=== PATIENT | female | born 1960 | race Hispanic/Latino ===

== ENCOUNTER 2016-12-06 02:06 | Emergency (ER) | payer SELFPAY ==
[~2016-12-06] VITALS: Ht 152.4 cm; Wt 87.2 kg
[~2016-12-06 02:06] MED LIST: ACETTAB3 OR; ADVIL200 MG OR; DARVOCET N-100100 - OR; FIORICET PO; INDOMETHACIN50 MG PO; LISINOPRIL10 MG PO; MAXALT-MLT10 MG OR; MEDDOSEPAK PO; MICARDIS HC1 OR; MICARDIS HCT OR; MICARDIS40 MG; MICARDIS40 MG OR; NAPROXEN SOD550 MG OR; NO; NO CURRENT MEDS; REGLAN10 MG OR; REGLAN5 MG OR; TRAMADOL HCL50 MG OR; ULTRAM50 MG OR
[2016-12-06 02:47] VITALS: BP 140/92
[2016-12-06 02:52] LABS: HEMATOCRIT 35.6 % (37.0-47.0); HEMOGLOBIN 11.9 g/dl (12.0-16.0); IMMATURE GRANULOCYTES 0.2 % (0.0-1.0); MEAN CELL VOLUME 89.4 fL CALC (80.0-100.0); MEAN CORPUSCULAR HGB 29.9 pG CALC (26.0-32.0); MEAN CORPUSCULAR HGB CONC 33.4 g/L CALC (32.0-36.0); NEUT# 5.77 thou/uL (2.00-7.15); RED BLOOD COUNT 3.98 mill/uL (4.20-5.60)
[2016-12-06 03:02] LABS: ALBUMIN 4.1 g/dL (3.2-5.0); ALKALINE PHOSPHATASE 71 u/l (38-126); ANION GAP 15 (6-22 (CALC)); BILIRUBIN, TOTAL 0.5 mg/dL (0.0-1.4); BUN 17 mg/dL (7-17); BUN/CREATININE RATIO 22 (12-20 (CALC)); CARBON DIOXIDE 26 mmol/l (22-30); CHLORIDE 107 mmol/l (95-108); CREATININE 0.8 mg/dL (0.5-1.0); GFR > 60 ML/MIN (>=60 (CALC)); GFR FOR AFR.AMER. > 60 ML/MIN (>=60 (CALC)); GLUCOSE 92 mg/dL (65-105); POTASSIUM 3.5 mmol/l (3.5-5.1); SGOT/AST 23 u/l (14-36); SGPT/ALT 28 u/l (9-52); SODIUM 145 mmol/l (137-146); TOTAL PROTEIN 7.3 g/dL (6.3-8.2)
== END 2016-12-06 03:50 | disposition home or self-care (01) | DRG 607 ==
LOC: ED 02:06
PROVIDERS: Emergency Medicine
DX: L29.9 Pruritus, unspecified (principal)

== ENCOUNTER 2017-04-26 08:47 | Emergency (ER) | payer SELFPAY ==
[~2017-04-26] VITALS: Ht 152.4 cm; Wt 85.0 kg
[2017-04-26 09:53] LABS: HEMATOCRIT 40.5 % (37.0-47.0); HEMOGLOBIN 13.2 g/dl (12.0-16.0); IMMATURE GRANULOCYTES 0.2 % (0.0-1.0); MEAN CELL VOLUME 86.7 fL CALC (80.0-100.0); MEAN CORPUSCULAR HGB 28.3 pG CALC (26.0-32.0); MEAN CORPUSCULAR HGB CONC 32.6 g/L CALC (32.0-36.0); NEUT# 6.21 thou/uL (2.00-7.15); RED BLOOD COUNT 4.67 mill/uL (4.20-5.60); RED CELL DISTRI WIDTH 15.2 % (11.5-15.5)
[2017-04-26 10:05] LABS: ALBUMIN 4.5 g/dL (3.2-5.0); ALKALINE PHOSPHATASE 84 u/l (38-126); ANION GAP 14 (6-22 (CALC)); BILIRUBIN, TOTAL 0.8 mg/dL (0.0-1.4); BUN 14 mg/dL (7-17); BUN/CREATININE RATIO 19 (12-20 (CALC)); CALCIUM 9.2 mg/dL (8.4-10.2); CARBON DIOXIDE 27 mmol/l (22-30); CHLORIDE 108 mmol/l (95-108); CREATININE 0.7 mg/dL (0.5-1.0); GFR > 60 ML/MIN (>=60 (CALC)); GFR FOR AFR.AMER. > 60 ML/MIN (>=60 (CALC)); GLUCOSE 95 mg/dL (65-105); POTASSIUM 4.1 mmol/l (3.5-5.1); SGOT/AST 25 u/l (14-36); SGPT/ALT 28 u/l (9-52); SODIUM 144 mmol/l (137-146); TOTAL PROTEIN 8.1 g/dL (6.3-8.2)
[2017-04-26 11:53] VITALS: BP 184/106
[2017-04-26] MEDS ORDERED: FIORICET PO (12:12)
== END 2017-04-26 12:10 | disposition home or self-care (01) | DRG 607 ==
LOC: ED 08:47
PROVIDERS: Emergency Medicine
DX: R22.1 Localized swelling, mass and lump, neck (principal); I10 Essential (primary) hypertension
CPT/HCPCS: Q9967

== ENCOUNTER 2017-04-27 16:43 | Emergency (ER) | payer SELFPAY ==
[~2017-04-27] VITALS: Ht 152.4 cm; Wt 87.0 kg
[2017-04-27 19:05] VITALS: BP 144/84
== END 2017-04-27 19:05 | disposition home or self-care (01) | DRG 103 ==
LOC: ED 16:43
DX: G43.909 Migraine, unspecified, not intractable, without status migrainosus (principal)

== ENCOUNTER 2017-05-09 11:24 | Emergency (ER) | payer SELFPAY ==
[~2017-05-09] VITALS: Ht 152.4 cm; Wt 84.4 kg
[2017-05-09] MEDS ORDERED: BACTRIM DS1 TAB PO (12:12)
[2017-05-09 13:00] VITALS: BP 147/90
== END 2017-05-09 13:00 | disposition home or self-care (01) | DRG 816 ==
LOC: ED 11:24
DX: R59.0 Localized enlarged lymph nodes (principal)

== ENCOUNTER 2017-10-26 12:12 | Emergency (ER) | payer OTHER ==
[~2017-10-26] VITALS: Ht 152.4 cm; Wt 81.8 kg
[~2017-10-26 12:12] MED LIST changes: +BACTRIM DS1 TAB PO
[2017-10-26 13:10] VITALS: BP 149/84
== END 2017-10-26 13:10 | disposition home or self-care (01) | DRG 607 ==
LOC: ED 12:12
DX: S80.862A Insect bite (nonvenomous), left lower leg, initial encounter (principal); W57.XXXA Bitten or stung by nonvenomous insect and other nonvenomous arthropods, initial encounter; Y93.H2 Activity, gardening and landscaping; Y99.0 Civilian activity done for income or pay

== ENCOUNTER 2018-05-01 13:54 | Emergency (ER) | payer SELFPAY ==
[~2018-05-01] VITALS: Ht 152.4 cm; Wt 85.0 kg
[2018-05-01 14:33] LABS: HEMATOCRIT 35.6 % (37.0-47.0); IMMATURE GRANULOCYTES 0.4 % (0.0-5.0); MEAN CORPUSCULAR HGB 23.2 pG CALC (26.0-32.0); MEAN CORPUSCULAR HGB CONC 30.3 g/L CALC (32.0-36.0); NEUT# 4.52 thou/uL (2.00-7.15); RED BLOOD COUNT 4.65 mill/uL (4.20-5.60); RED CELL DISTRI WIDTH 16.1 % (11.5-15.5)
[2018-05-01 14:37] LABS: HEMOGLOBIN 10.8 g/dl (12.0-16.0); MEAN CELL VOLUME 76.6 fL CALC (80.0-100.0)
[2018-05-01 14:48] LABS: ALBUMIN 4.5 g/dL (3.2-5.0); ALKALINE PHOSPHATASE 77 u/l (38-126); AMYLASE 59 u/l (30-110); ANION GAP 17 (6-22 (CALC)); BILIRUBIN, TOTAL 0.4 mg/dL (0.0-1.4); BUN 15 mg/dL (7-17); BUN/CREATININE RATIO 22 (12-20 (CALC)); CARBON DIOXIDE 25 mmol/l (22-30); CHLORIDE 103 mmol/l (95-108); CREATININE 0.7 mg/dL (0.5-1.0); GFR > 60 ML/MIN (>=60 (CALC)); GFR FOR AFR.AMER. > 60 ML/MIN (>=60 (CALC)); LIPASE 32 u/l (23-300); POTASSIUM 3.5 mmol/l (3.5-5.1); SGOT/AST 19 u/l (14-36); SODIUM 141 mmol/l (137-146)
[2018-05-01 16:18] LABS: URINE BILIRUBIN - DIPSTICK NEGATIVE (NEGATIVE); URINE BLOOD DIPSTICK TRACE-INTACT (NEGATIVE); URINE COLOR YELLOW; URINE GLUCOSE - DIPSTICK NEGATIVE (NEGATIVE); URINE KETONE 15 mg/dL (NEGATIVE); URINE LEUK ESTERASE NEGATIVE (NEGATIVE); URINE NITRITE - DIPSTICK NEGATIVE (Negative); URINE PROTEIN - DIPSTICK TRACE mg/dL (NEG-TRACE); URINE SPECIFIC GRAVITY >=1.030; URINE UROBILINOGEN - DIPSTICK 0.2 E.U./dL (0.2)
[2018-05-01 16:19] LABS: URINE CLARITY CLEAR
[2018-05-01] MEDS ORDERED: LISINOPRIL10 MG PO (17:03)
[2018-05-01] MEDS ORDERED: ZOFRAN4 MG/TAB PO (17:03)
[2018-05-01 17:32] VITALS: BP 168/96
== END 2018-05-01 17:40 | disposition home or self-care (01) | DRG 392 ==
LOC: ED 13:54
PROVIDERS: Family Medicine
DX: K52.9 Noninfective gastroenteritis and colitis, unspecified (principal); R05 Cough; R50.9 Fever, unspecified; R11.2 Nausea with vomiting, unspecified; R09.81 Nasal congestion; R45.1 Restlessness and agitation

== ENCOUNTER 2018-05-08 00:03 | Emergency (ER) | payer SELFPAY ==
[~2018-05-08] VITALS: Ht 152.4 cm; Wt 85.0 kg
[~2018-05-08 00:03] MED LIST changes: +ZOFRAN4 MG/TAB PO
[2018-05-08 01:24] LABS: HEMATOCRIT 35.7 % (37.0-47.0); HEMOGLOBIN 11.2 g/dl (12.0-16.0); IMMATURE GRANULOCYTES 0.3 % (0.0-5.0); MEAN CELL VOLUME 76.3 fL CALC (80.0-100.0); MEAN CORPUSCULAR HGB 23.9 pG CALC (26.0-32.0); MEAN CORPUSCULAR HGB CONC 31.4 g/L CALC (32.0-36.0); NEUT# 9.66 thou/uL (2.00-7.15); RED BLOOD COUNT 4.68 mill/uL (4.20-5.60)
[2018-05-08 01:46] LABS: ALBUMIN 4.2 g/dL (3.2-5.0); ALKALINE PHOSPHATASE 77 u/l (38-126); ANION GAP 13 (6-22 (CALC)); BILIRUBIN, TOTAL 0.4 mg/dL (0.0-1.4); BUN 12 mg/dL (7-17); BUN/CREATININE RATIO 18 (12-20 (CALC)); CARBON DIOXIDE 26 mmol/l (22-30); CHLORIDE 105 mmol/l (95-108); CREATININE 0.7 mg/dL (0.5-1.0); GFR > 60 ML/MIN (>=60 (CALC)); GFR FOR AFR.AMER. > 60 ML/MIN (>=60 (CALC)); POTASSIUM 3.3 mmol/l (3.5-5.1); SGOT/AST 14 u/l (14-36); SODIUM 141 mmol/l (137-146); TOTAL PROTEIN 7.6 g/dL (6.3-8.2)
[2018-05-08 02:06] LABS: MYOGLOBIN 26 ng/mL (0 - 62)
[2018-05-08] MEDS ORDERED: ROBITUSSIN AC10 ML PO (02:12)
[2018-05-08] MEDS ORDERED: ZPAK PO (02:12)
[2018-05-08] MEDS ORDERED: INDOCIN25 MG PO (02:12)
[2018-05-08 03:30] VITALS: BP 149/88
== END 2018-05-08 03:30 | disposition home or self-care (01) | DRG 203 ==
LOC: ED 00:03
PROVIDERS: Emergency Medicine
DX: J40 Bronchitis, not specified as acute or chronic (principal); R09.1 Pleurisy; R05 Cough; R50.9 Fever, unspecified

== ENCOUNTER 2018-07-20 02:01 | Emergency (ER) | payer SELFPAY ==
[~2018-07-20] VITALS: Ht 152.4 cm; Wt 81.8 kg
[~2018-07-20 02:01] MED LIST changes: +INDOCIN25 MG PO; +ROBITUSSIN AC10 ML PO; +ZPAK PO
[2018-07-20 02:46] LABS: HEMATOCRIT 34.1 % (37.0-47.0); HEMOGLOBIN 10.5 g/dl (12.0-16.0); IMMATURE GRANULOCYTES 0.3 % (0.0-5.0); MEAN CORPUSCULAR HGB CONC 30.8 g/L CALC (32.0-36.0); NEUT# 3.54 thou/uL (2.00-7.15); RED BLOOD COUNT 4.37 mill/uL (4.20-5.60); RED CELL DISTRI WIDTH 17.9 % (11.5-15.5)
[2018-07-20 02:57] LABS: ALBUMIN 4.2 g/dL (3.2-5.0); ALKALINE PHOSPHATASE 76 u/l (38-126); ANION GAP 13 (6-22 (CALC)); BILIRUBIN, TOTAL 0.3 mg/dL (0.0-1.4); BUN 12 mg/dL (7-17); BUN/CREATININE RATIO 15 (12-20 (CALC)); CARBON DIOXIDE 25 mmol/l (22-30); CHLORIDE 108 mmol/l (95-108); CREATININE 0.8 mg/dL (0.5-1.0); GFR > 60 ML/MIN (>=60 (CALC)); GFR FOR AFR.AMER. > 60 ML/MIN (>=60 (CALC)); POTASSIUM 3.7 mmol/l (3.5-5.1); SGOT/AST 23 u/l (14-36); SODIUM 143 mmol/l (137-146); TOTAL PROTEIN 7.6 g/dL (6.3-8.2)
[2018-07-20 03:07] LABS: MYOGLOBIN 48 ng/mL (0 - 62)
[2018-07-20] MEDS ORDERED: TORADOL PO (03:55)
[2018-07-20] MEDS ORDERED: FIORICET PO (03:55)
[2018-07-20 04:00] VITALS: BP 185/97
== END 2018-07-20 04:00 | disposition home or self-care (01) | DRG 103 ==
LOC: ED 02:01
PROVIDERS: Family Medicine
DX: G43.909 Migraine, unspecified, not intractable, without status migrainosus (principal); M94.0 Chondrocostal junction syndrome [Tietze]; I10 Essential (primary) hypertension

== ENCOUNTER 2018-07-25 15:56 | Emergency (ER) | payer SELFPAY ==
[~2018-07-25] VITALS: Ht 152.4 cm; Wt 81.8 kg
[~2018-07-25 15:56] MED LIST changes: +TORADOL PO
[2018-07-25] MEDS ORDERED: PERCOGESI1 PO (18:14)
[2018-07-25 19:45] VITALS: BP 135/92
== END 2018-07-25 19:47 | disposition home or self-care (01) | DRG 93 ==
LOC: ED 15:56
DX: G89.29 Other chronic pain (principal); R51 Headache; R11.0 Nausea

== ENCOUNTER 2018-08-25 17:10 | Emergency (ER) | payer SELFPAY ==
[~2018-08-25] VITALS: Ht 152.4 cm; Wt 81.8 kg
[~2018-08-25 17:10] MED LIST changes: +PERCOGESI1 PO
[2018-08-25] MEDS ORDERED: LISINOPRIL10 MG PO (17:25)
[2018-08-25 17:54] LABS: URINE BILIRUBIN - DIPSTICK NEGATIVE (NEGATIVE); URINE BLOOD DIPSTICK NEGATIVE (NEGATIVE); URINE COLOR YELLOW; URINE GLUCOSE - DIPSTICK NEGATIVE (NEGATIVE); URINE KETONE NEGATIVE (NEGATIVE); URINE NITRITE - DIPSTICK NEGATIVE (Negative); URINE PROTEIN - DIPSTICK NEGATIVE (NEG-TRACE); URINE UROBILINOGEN - DIPSTICK 0.2 E.U./dL (0.2)
[2018-08-25 17:55] LABS: URINE LEUK ESTERASE MODERATE (NEGATIVE)
[2018-08-25 17:56] LABS: BARBITURATES NEGATIVE (NEGATIVE); COCAINE NEGATIVE (NEGATIVE); METHADONE NEGATIVE (NEGATIVE); OXCYCODONE NEGATIVE (NEGATIVE); TETRAHYDROCANNABIONOL NEGATIVE (NEGATIVE); TRICYLIC ANTIDEPRESSANTS NEGATIVE (NEGATIVE)
[2018-08-25 18:19] LABS: URINE BACTERIA RARE hpf; URINE SQUAMOUS EPITHELIAL CELL FEW EPI/hpf (0-FEW); URINE WBC TNTC WBC/hpf (0-5)
[2018-08-25] MEDS ORDERED: KEFLEX500 M1 PO (18:59)
[2018-08-25 19:16] VITALS: BP 166/84
== END 2018-08-25 19:15 | disposition home or self-care (01) | DRG 103 ==
LOC: ED 17:10
DX: R51 Headache (principal); N39.0 Urinary tract infection, site not specified; I10 Essential (primary) hypertension; M19.90 Unspecified osteoarthritis, unspecified site

== ENCOUNTER 2018-09-24 10:34 | Emergency (ER) | payer SELFPAY ==
[~2018-09-24] VITALS: Ht 152.4 cm; Wt 90.0 kg
[~2018-09-24 10:34] MED LIST changes: +KEFLEX500 M1 PO
[2018-09-24 11:17] LABS: HEMOGLOBIN 10.4 g/dl (12.0-16.0); IMMATURE GRANULOCYTES 0.4 % (0.0-5.0); MEAN CELL VOLUME 76.9 fL CALC (80.0-100.0); MEAN CORPUSCULAR HGB 23.5 pG CALC (26.0-32.0); MEAN CORPUSCULAR HGB CONC 30.6 g/L CALC (32.0-36.0); NEUT# 4.71 thou/uL (2.00-7.15); RED BLOOD COUNT 4.42 mill/uL (4.20-5.60); RED CELL DISTRI WIDTH 16.5 % (11.5-15.5)
[2018-09-24 11:42] LABS: ALBUMIN 4.1 g/dL (3.2-5.0); ALKALINE PHOSPHATASE 75 u/l (38-126); ANION GAP 15 (6-22 (CALC)); BILIRUBIN, TOTAL 0.4 mg/dL (0.0-1.4); BUN 14 mg/dL (7-17); BUN/CREATININE RATIO 17 (12-20 (CALC)); CARBON DIOXIDE 24 mmol/l (22-30); CHLORIDE 105 mmol/l (95-108); CREATININE 0.8 mg/dL (0.5-1.0); GFR > 60 ML/MIN (>=60 (CALC)); GFR FOR AFR.AMER. > 60 ML/MIN (>=60 (CALC)); LIPASE 87 u/l (23-300); POTASSIUM 3.7 mmol/l (3.5-5.1); SGOT/AST 15 u/l (14-36); SODIUM 139 mmol/l (137-146); TOTAL PROTEIN 7.1 g/dL (6.3-8.2)
[2018-09-24 14:00] LABS: COCAINE NEGATIVE (NEGATIVE); METHADONE NEGATIVE (NEGATIVE); TETRAHYDROCANNABIONOL NEGATIVE (NEGATIVE)
[2018-09-24 14:01] LABS: BARBITURATES NEGATIVE (NEGATIVE); OXCYCODONE NEGATIVE (NEGATIVE); TRICYLIC ANTIDEPRESSANTS NEGATIVE (NEGATIVE)
[2018-09-24] MEDS ORDERED: PROTONIX40 M2 PO (14:15)
[2018-09-24 14:39] VITALS: BP 164/77
== END 2018-09-24 14:39 | disposition home or self-care (01) | DRG 313 ==
LOC: ED 10:34
PROVIDERS: Emergency Medicine
DX: R07.89 Other chest pain (principal); R51 Headache; K44.9 Diaphragmatic hernia without obstruction or gangrene; I10 Essential (primary) hypertension
CPT/HCPCS: Q9967

== ENCOUNTER 2019-06-18 16:14 | Emergency (ER) | payer SELFPAY ==
[~2019-06-18] VITALS: Ht 152.4 cm; Wt 81.8 kg
[~2019-06-18 16:14] MED LIST changes: +PROTONIX40 M2 PO
[2019-06-18 17:34] LABS: HEMATOCRIT 38.6 % (37.0-47.0); HEMOGLOBIN 11.6 g/dl (12.0-16.0); IMMATURE GRANULOCYTES 0.8 % (0.0-5.0); MEAN CELL VOLUME 80.8 fL CALC (80.0-100.0); MEAN CORPUSCULAR HGB 24.3 pG CALC (26.0-32.0); MEAN CORPUSCULAR HGB CONC 30.1 g/L CALC (32.0-36.0); NEUT# 4.31 thou/uL (2.00-7.15); RED BLOOD COUNT 4.78 mill/uL (4.20-5.60); RED CELL DISTRI WIDTH 16.9 % (11.5-15.5)
[2019-06-18 17:56] LABS: ANION GAP 17 (6-22 (CALC)); BUN 15 mg/dL (7-17); BUN/CREATININE RATIO 26 (12-20 (CALC)); CARBON DIOXIDE 23 mmol/l (22-30); CHLORIDE 101 mmol/l (95-108); CREATININE 0.6 mg/dL (0.5-1.0); GFR > 60 ML/MIN (>=60 (CALC)); GFR FOR AFR.AMER. > 60 ML/MIN (>=60 (CALC)); POTASSIUM 3.5 mmol/l (3.5-5.1); SODIUM 138 mmol/l (137-146)
[2019-06-18 17:56] LABS: ALBUMIN 4.4 g/dL (3.2-5.0); BILIRUBIN, TOTAL 0.5 mg/dL (0.0-1.4)
[2019-06-18 18:00] LABS: TOTAL PROTEIN 8.8 g/dL (6.3-8.2)
[2019-06-18] MEDS ORDERED: HYDROCHLOROT12.5 MG PO (19:14)
[2019-06-18] MEDS ORDERED: TAM75CAP PO (20:32)
[2019-06-18 21:00] VITALS: BP 128/68
== END 2019-06-18 20:59 | disposition home or self-care (01) | DRG 153 ==
LOC: ED 16:14
PROVIDERS: Family Medicine
DX: J11.1 Influenza due to unidentified influenza virus with other respiratory manifestations (principal); R07.9 Chest pain, unspecified; I10 Essential (primary) hypertension

== ENCOUNTER 2020-03-25 21:56 | Emergency (ER) | payer SELFPAY ==
[~2020-03-25] VITALS: Ht 152.4 cm; Wt 79.5 kg
[~2020-03-25 21:56] MED LIST changes: +HYDROCHLOROT12.5 MG PO; +TAM75CAP PO
[2020-03-25 22:59] LABS: HEMATOCRIT 35.4 % (37.0-47.0); HEMOGLOBIN 11.5 g/dl (12.0-16.0); IMMATURE GRANULOCYTES 0.6 % (0.0-5.0); MEAN CORPUSCULAR HGB 29.8 pG CALC (26.0-32.0); MEAN CORPUSCULAR HGB CONC 32.5 g/dL CAL (32.0-36.0); NEUT# 4.43 thou/uL (2.00-7.15); RED BLOOD COUNT 3.86 mill/uL (4.20-5.60); RED CELL DISTRI WIDTH 14.7 % (11.5-15.5)
[2020-03-25 23:20] LABS: D-DIMER 0.61 mg/L (0.19-0.60)
[2020-03-25 23:28] VITALS: BP 101/59
[2020-03-25 23:29] LABS: ALBUMIN 4.3 g/dL (3.2-5.0); ALKALINE PHOSPHATASE 68 u/l (38-126); ANION GAP 12 (6-22 (CALC)); BUN 23 mg/dL (8-23); BUN/CREATININE RATIO 19 (12-20 (CALC)); CARBON DIOXIDE 23 mmol/l (22-30); CHLORIDE 108 mmol/l (95-108); CREATININE 1.2 mg/dL (0.5-1.0); GFR 46 ML/MIN (>=60 (CALC)); GFR FOR AFR.AMER. 55 ML/MIN (>=60 (CALC)); POTASSIUM 3.6 mmol/l (3.5-5.1); SGOT/AST 16 u/l (9-36); SODIUM 139 mmol/l (137-146); TOTAL PROTEIN 7.4 g/dL (6.3-8.2)
[2020-03-25 23:30] LABS: BILIRUBIN, TOTAL 0.2 mg/dL (0.0-1.4)
[2020-03-25 23:31] LABS: ACT PARTIAL THROMBO TIME 23.7 SECONDS (20.0-32.5); INTERNATIONAL NORMALIZED RATIO 0.9 RATIO (0.7-1.3); MEAN CELL VOLUME 91.7 fL CALC (80.0-100.0); PROTHROMBIN TIME 9.4 SECONDS (9.0-12.5)
[2020-03-25 23:41] LABS: MYOGLOBIN 31 ng/mL (0 - 62)
[2020-03-25] MEDS ORDERED: PEPCID40 MG PO (23:52)
== END 2020-03-26 00:02 | disposition home or self-care (01) | DRG 392 ==
LOC: ED 21:56
PROVIDERS: Family Medicine
DX: K21.9 Gastro-esophageal reflux disease without esophagitis (principal); K44.9 Diaphragmatic hernia without obstruction or gangrene; I10 Essential (primary) hypertension

== ENCOUNTER 2021-05-18 18:55 | Emergency (ER) | payer SELFPAY ==
[~2021-05-18] VITALS: Ht 152.4 cm; Wt 82.5 kg
[~2021-05-18 18:55] MED LIST changes: +PEPCID40 MG PO
[2021-05-18 20:20] LABS: HEMATOCRIT 38.6 % (37.0-47.0); HEMOGLOBIN 12.2 g/dl (12.0-16.0); MEAN CORPUSCULAR HGB 27.2 pG CALC (26.0-32.0); MEAN CORPUSCULAR HGB CONC 31.6 g/dL CAL (32.0-36.0); NEUT# 5.75 thou/uL (2.00-7.15); RED BLOOD COUNT 4.49 mill/uL (4.20-5.60); RED CELL DISTRI WIDTH 14.5 % (11.5-15.5)
[2021-05-18 20:21] LABS: URINE BILIRUBIN - DIPSTICK NEGATIVE (NEGATIVE); URINE BLOOD DIPSTICK NEGATIVE (NEGATIVE); URINE COLOR YELLOW; URINE GLUCOSE - DIPSTICK NEGATIVE (NEGATIVE); URINE KETONE NEGATIVE (NEGATIVE); URINE LEUK ESTERASE NEGATIVE (NEGATIVE); URINE PROTEIN - DIPSTICK TRACE mg/dL (NEG-TRACE); URINE SPECIFIC GRAVITY >=1.030; URINE UROBILINOGEN - DIPSTICK 0.2 E.U./dL (0.2)
[2021-05-18 20:23] LABS: URINE NITRITE - DIPSTICK NEGATIVE (Negative)
[2021-05-18 20:24] LABS: ALBUMIN 4.2 g/dL (3.2-5.0); ALKALINE PHOSPHATASE 95 u/l (38-126); BUN 20 mg/dL (8-23); BUN/CREATININE RATIO 23 (12-20 (CALC)); CHLORIDE 106 mmol/l (95-108); CREATININE 0.9 mg/dL (0.5-1.0); GFR > 60 ML/MIN (>=60 (CALC)); GFR FOR AFR.AMER. > 60 ML/MIN (>=60 (CALC)); POTASSIUM 3.7 mmol/l (3.5-5.1); SGOT/AST 17 u/l (9-36); SODIUM 140 mmol/l (137-146); TOTAL PROTEIN 7.9 g/dL (6.3-8.2)
[2021-05-18 20:25] LABS: ANION GAP 10 (6-22 (CALC)); BILIRUBIN, TOTAL 0.5 mg/dL (0.0-1.4); CARBON DIOXIDE 28 mmol/l (22-30)
[2021-05-18] MEDS ORDERED: TORADOL PO (20:31)
[2021-05-18 21:20] VITALS: BP 161/92
== END 2021-05-18 21:20 | disposition home or self-care (01) ==
LOC: ED 18:55
PROVIDERS: Family Medicine
DX: J06.9 Acute upper respiratory infection, unspecified (principal); R51.9 Headache, unspecified; I10 Essential (primary) hypertension

== ENCOUNTER 2021-08-20 07:05 | Emergency (ER) | payer SELFPAY ==
[~2021-08-20] VITALS: Ht 152.4 cm; Wt 76.0 kg
[2021-08-20 08:20] LABS: GFR > 60 ML/MIN (>=60 (CALC)); GFR FOR AFR.AMER. > 60 ML/MIN (>=60 (CALC))
[2021-08-20 08:21] LABS: HEMATOCRIT 36.7 % (37.0-47.0); HEMOGLOBIN 11.5 g/dl (12.0-16.0); IMMATURE GRANULOCYTES 0.2 % (0.0-5.0); MEAN CELL VOLUME 86.2 fL CALC (80.0-100.0); MEAN CORPUSCULAR HGB CONC 31.3 g/dL CAL (32.0-36.0); NEUT# 3.65 thou/uL (2.00-7.15); RED BLOOD COUNT 4.26 mill/uL (4.20-5.60); RED CELL DISTRI WIDTH 15.4 % (11.5-15.5)
[2021-08-20 08:26] LABS: URINE BILIRUBIN - DIPSTICK NEGATIVE (NEGATIVE); URINE BLOOD DIPSTICK NEGATIVE (NEGATIVE); URINE COLOR YELLOW; URINE GLUCOSE - DIPSTICK NEGATIVE (NEGATIVE); URINE KETONE NEGATIVE (NEGATIVE); URINE PROTEIN - DIPSTICK NEGATIVE (NEG-TRACE); URINE SPECIFIC GRAVITY >=1.030; URINE UROBILINOGEN - DIPSTICK 0.2 E.U./dL (0.2)
[2021-08-20 08:29] LABS: URINE LEUK ESTERASE NEGATIVE (NEGATIVE); URINE NITRITE - DIPSTICK NEGATIVE (Negative)
[2021-08-20 08:37] LABS: ALBUMIN 3.9 g/dL (3.2-5.0); ALKALINE PHOSPHATASE 70 u/l (38-126); ANION GAP 14 (6-22 (CALC)); BILIRUBIN, TOTAL 0.3 mg/dL (0.0-1.4); BUN 18 mg/dL (8-23); BUN/CREATININE RATIO 21 (12-20 (CALC)); CARBON DIOXIDE 25 mmol/l (22-30); CHLORIDE 106 mmol/l (95-108); CREATININE 0.8 mg/dL (0.5-1.0); GFR > 60 ML/MIN (>=60 (CALC)); GFR FOR AFR.AMER. > 60 ML/MIN (>=60 (CALC)); LIPASE 102 u/l (23-300); POTASSIUM 3.8 mmol/l (3.5-5.1); SGOT/AST 19 u/l (9-36); SODIUM 140 mmol/l (137-146); TOTAL PROTEIN 7.6 g/dL (6.3-8.2)
[2021-08-20 10:02] VITALS: BP 139/89
== END 2021-08-20 10:02 | disposition home or self-care (01) | DRG 392 ==
LOC: ED 07:05
PROVIDERS: Family Medicine
DX: R10.13 Epigastric pain (principal); I10 Essential (primary) hypertension
CPT/HCPCS: Q9967

== ENCOUNTER 2022-01-09 14:03 | Emergency (ER) | payer SELFPAY ==
[~2022-01-09] VITALS: Ht 152.4 cm
== END 2022-01-09 15:13 | disposition left against medical advice (07) | DRG 951 ==
LOC: ED 14:03 → LWOBS 14:18
DX: Z53.21 Procedure and treatment not carried out due to patient leaving prior to being seen by health care provider (principal)

== ENCOUNTER 2024-04-10 18:06 | Emergency (ER) | payer MEDICARE, MEDICAID ==
[2024-04-10] VITALS (9 sets, daily range): BP systolic 102–130; BP diastolic 63–78
[~2024-04-10] VITALS: Ht 152.4 cm; Wt 81.6 kg
[2024-04-10] MEDS ORDERED: ACETAMINOPHEN 500 MG TAB PO ONE (18:25)
[2024-04-10] MEDS ORDERED: IBUPROFEN 600 MG/TAB PO ONE (18:25)
[2024-04-10] MEDS ORDERED: LOSARTAN POTASS1 TA3 PO (18:30)
[2024-04-10 18:42] LABS: BASO% 0.4 % (0-3); EOS% 0.5 % (0-8); HEMATOCRIT 37.9 % (37.0-47.0); HEMOGLOBIN 12.2 g/dl (12.0-16.0); IMMATURE GRANULOCYTES 0.4 % (0.0-5.0); LYMPH% 16.1 % (15-41); MEAN CORPUSCULAR HGB 28.6 pG CALC (26.0-32.0); MEAN CORPUSCULAR HGB CONC 32.2 g/dL CAL (32.0-36.0); MONO% 7.8 % (2-13); NEUT# 6.28 thou/uL (2.00-7.15); NEUT% 74.8 % (42-76); RED BLOOD COUNT 4.26 mill/uL (4.20-5.60); RED CELL DISTRI WIDTH 14.3 % (11.5-15.5)
[2024-04-10 18:53] LABS: URINE BILIRUBIN - DIPSTICK Negative (NEGATIVE); URINE BLOOD DIPSTICK Negative (NEGATIVE); URINE GLUCOSE - DIPSTICK Negative (NEGATIVE); URINE KETONE Negative (NEGATIVE); URINE LEUK ESTERASE Negative (NEGATIVE); URINE NITRITE - DIPSTICK Negative (Negative); URINE PH 7.5 (4.5-8.0); URINE PROTEIN - DIPSTICK Trace mg/dL (NEG-TRACE)
[2024-04-10 18:56] LABS: URINE COLOR Yellow
== END 2024-04-10 20:18 | disposition home or self-care (01) ==
LOC: ED 18:06
PROVIDERS: Family Medicine
DX: B34.9 Viral infection, unspecified (principal); I10 Essential (primary) hypertension; Z20.822 Contact with and (suspected) exposure to COVID-19